=== PATIENT | male | born 1970 | race Caucasian/White ===

== ENCOUNTER 2019-08-04 22:29 | Emergency (ER) | payer OTHER, SELFPAY ==
[2019-08-04 22:31] VITALS: BP 171/87; PULSE 116; RESP 15; TEMP 36.7; O2SAT 97; BMI 44.3
--- NOTE | 2019-08-05 01:11 | ED.VISSUMM ---
- ER Visit Summary Date of Service: 08/05/19 Chief Complaint: Wound right lower leg with bleeding History of Present Illness: The patient is a 49 M no significant past medical history. Patient states he had dry skin on his right lower leg. Never got out of shower he noticed bleeding. Does not remember any trauma. Says he has been scratching the area. Physical Examination: Well-appearing middle-aged male vital signs stable afebrile. No acute distress. HEENT exam unremarkable. Neck nontender. Lungs clear to auscultation. Heart regular rhythm no murmur. Abdomen soft nontender. Patient is moving all 4 extremities. He has a superficial abrasion on his right lower lateral ankle currently there is no blood or active bleeding. Foot is neurovascular intact with DP pulse. Dorsi plantar flexion. Normal strength and sensation. There are no signs of infection. Test Results: None Emergency Department Course and Treatment: Patient was instructed on wound care or if bleeding recurs. Nurses will clean and dressed the wound. There is nothing to sew or repair. He does not need a tetanus. Treatment Plan: Wound care. Disposition: Discharge Impression: Right lower leg superficial wound bleeding resolved This note was generated with [employer] dictation software. It may contain incorrect words, spelling, and punctuation that were not noted in review of the chart prior to signing ED Disposition - Plan for ED Patient: Referrals: Ang Francois MD [Primary Care Provider] -
--- NOTE | 2019-08-05 01:12 | ED.DEP ---
ED Disposition - Plan for ED Patient: Disposition: Home or Assisted Living Instructions: POST OP WOUND CHECK, Bleeding Referrals: Ang Francois MD [Primary Care Provider] - As Needed Additional Instructions: Keep area clean. Watch for any signs of infection. If bleeding restarts 30 minutes of direct pressure you should stop it. Moisturizer skin cream to help with the dry skin.
[2019-08-05 01:17] VITALS: BP 177/69; PULSE 91; RESP 18; O2SAT 96
== END 2019-08-05 01:23 | disposition home or self-care (01) ==
LOC: ED 08-05 01:20
PROVIDERS: Emergency Provider Emergency Medicine; PCP Internal Medicine
DX: S90.511A Abrasion, right ankle, initial encounter (principal); X58.XXXA Exposure to other specified factors, initial encounter; Y93.9 Activity, unspecified; Y92.9 Unspecified place or not applicable; Y99.9 Unspecified external cause status
CPT/HCPCS: 99282